=== PATIENT | male | born 1970 | race Hispanic/Latino ===

== ENCOUNTER 2023-11-29 18:49 | Inpatient (IN) | payer SELFPAY ==
[2023-11-29 19:24] LABS: #Basophils 0.04 10x3/uL (0.0-0.2); #Eosinophils Less than 0.03 10x3/uL (0.0-0.7); %Basophils 0.3 % (0.0-1.0); %Lymphocytes 14.7 % (21.0-51.0); %Monocytes 14.3 % (0.0-10.0); %Neutrophils 70.3 % (42.0-75.0); Hematocrit 38.3 % (42.0-52.0); Mean Corpuscular HGB CONC 36.6 g/dL (32.0-36.0); Mean Corpuscular Hemoglobin 30.2 pg (27.0-31.0); Mean Corpuscular Volume 82.7 fL (78.0-98.0); Mean Platelet Volume 10.6 fL (7.4-10.4); Platelet Count 152 10x3/uL (130-400); RBC Distribution Width 11.9 % (11.5-14.5); Red Blood Cell (RBC) Count 4.63 mill/uL (4.70-6.10)
[2023-11-29 19:42] LABS: Lipase 84 U/L (8-78); Magnesium 1.8 mg/dL (1.6-2.6)
[2023-11-29 19:43] LABS: Acetaminophen Less than 10 mcg/mL (Less than 10); Alcohol Less than 10.0 mg/dL (Less than 10); Salicylate Less than 8.0 mg/dL (Less than 8.0)
[2023-11-29 19:45] LABS: ALT (SGPT) 22 U/L (8-55); AST (SGOT) 27 U/L (5-34); Albumin 3.5 g/dL (3.5-5.0); Alkaline Phosphatase 66 U/L (40-110); Anion Gap 11 mmol/L (10-20); BUN (Urea Nitrogen) 13 mg/dL (8.4-25.7); Bilirubin, Total 1.2 mg/dL (0.2-1.2); Calc. Creatinine Clearance 0 mL/min (70-130); Calcium 8.2 mg/dL (7.8-10.44); Carbon Dioxide 23 mmol/L (22-29); Chloride 96 mmol/L (98-107); Estimated GFR 103; Globulin 3.7 g/dL (2.4-3.5); Glucose 293 mg/dL (70-105); Protein, Total 7.2 g/dL (6.0-8.3); Sodium 127 mmol/L (136-145)
[2023-11-29 19:46] LABS: INR-International Normal Ratio 1.2; Prothrombin Time 15.2 sec (12.0-14.7); Troponin I 0.039 ng/mL (< 0.028)
[2023-11-29 20:08] LABS: Amphetamine Not Detected (NotDetected); Barbiturates Screen Not Detected (NotDetected); Benzodiazepine Screen Not Detected (NotDetected); Cocaine Metabolite Screen Not Detected (NotDetected); Methadone Not Detected (NotDetected); Methamphetamine Not Detected (NotDetected); Opiate Screen Not Detected (NotDetected); Oxycodone Screen Not Detected (NotDetected); Phencyclidine (PCP) Not Detected (NotDetected); THC/Cannabinoid Screen Not Detected (NotDetected); Tricyclic Screen Not Detected (NotDetected)
[2023-11-29 20:10] LABS: Actual Bicarbonate (HCO3v) 23.8 mEq/L (22-28); Analyzer IN Cardio ER; Base Excess 0.1 mEq/L (-2.0 to +3.0); Calcium, Ionized (venous) 1.04 mmol/L (1.16-1.32); Chloride (VBG) 94 mmol/L (98-106); Hematocrit-VBG 43 % (42.0-52.0); Hemoglobin (Hb) 14.6 g/dL (13.1-17.2); Potassium (VBG) 3.08 mmol/L (3.70-5.30); Sodium 130 mmol/L (133-146); pH (venous) 7.439 (7.32-7.43)
[2023-11-29 20:24] LABS: Bilirubin Negative (Negative); Blood, Urine 3+ (Negative); CAUTI Indications for Culture Alt mental st,lethar; Clarity Clear (Clear); Glucose, Urine (Dipstick) Greater than 1000 mg/dL (Negative); Ketone, Urine Negative (Negative); Leukocyte Negative Leu/uL (Negative); Nitrite Negative (Negative); Protein, Urine (Dipstick) 300 mg/dL (Neg-Trace); RBC/HPF 0-3 HPF (0-3); Specific Gravity, Urine 1.024 (1.002-1.036); Urobilinogen Normal mg/dL (Less than 2)
[2023-11-29] MEDS ORDERED: Electrolyte Replacement Protocol 1 EACH FS SCH (20:45)
[2023-11-29] MEDS ORDERED: Lorazepam 1 MG TAB PO PRN (20:45)
[2023-11-29] MEDS ORDERED: Ondansetron PF 4 MG/2 ML Vial IVP PRN (20:45)
[2023-11-29] MEDS ORDERED: Lorazepam 2 MG/ML VIAL IM PRN (20:45)
[2023-11-29] MEDS ORDERED: Lorazepam 1 MG TAB PO SCH (20:45)
[2023-11-29] MEDS ORDERED: Acetaminophen 650 MG Suppository PR PRN (20:45)
[2023-11-29] MEDS ORDERED: Ondansetron ODT 4 MG TAB PO PRN (20:45)
[2023-11-29 21:05] LABS: Bacteria/HPF Rare-Few HPF (None Seen)
[2023-11-29 21:06] LABS: Squamous Epithelial 0-3 HPF (0-3); Urine Culture Reflex No No
[2023-11-29] MEDS ORDERED: Lorazepam 2 MG/ML VIAL ONE (21:12)
[2023-11-29] MEDS ORDERED: Thiamine HCl 200 MG/2 ML VIAL ONE (21:12)
[2023-11-29] MEDS ORDERED: Multivit, Therapeutic 1 TAB ONE (21:12)
[2023-11-29] MEDS ORDERED: Aspirin Chewable 81 MG TAB ONE (21:12)
[2023-11-29] MEDS ORDERED: Magnesium 2 GM/50 ML BAG (IN WATER) ONE (21:13)
[2023-11-29] MEDS ORDERED: Potassium Chloride 20 MEQ TAB ONE (21:13)
[2023-11-29] MEDS ORDERED: Folic Acid 1 MG TAB ONE (21:30)
[2023-11-29] MEDS ORDERED: Nitroglycerin 0.4 MG TAB (25 Tab Bottle) SL PRN (21:54)
[2023-11-29] MEDS ORDERED: Glucagon 1 MG/ML KIT IM PRN (22:00)
[2023-11-29] MEDS ORDERED: Insulin Lispro 100 UNIT/ML 10 ML VIAL SC PRN (22:00)
[2023-11-29] MEDS ORDERED: Dextrose 5% in Water 1,000 ML IV PRN (22:00)
[2023-11-29] MEDS ORDERED: Dextrose 50% Abboject 50 ML SYRINGE SLOW IVP PRN (22:00)
[2023-11-30 00:10] LABS: Hemoglobin A1c 9.4 % (4.0-6.0)
[2023-11-30] MEDS: Famotidine 20 MG TAB PO SCH (00:12)
[2023-11-30] MEDS: Thiamine HCl 200 MG/2 ML VIAL SLOW IVP SCH (00:12)
[2023-11-30] MEDS: Famotidine/PF 20 mg/2ml Vial SLOW IVP SCH (00:12)
[2023-11-30 00:19] LABS: Troponin I 0.039 ng/mL (< 0.028)
[2023-11-30 02:06] LABS: Troponin I 0.041 ng/mL (< 0.028)
[2023-11-30 03:04] VITALS: BMI 28.5
[2023-11-30 04:43] LABS: #Basophils 0.06 10x3/uL (0.0-0.2); #Eosinophils Less than 0.03 10x3/uL (0.0-0.7); %Basophils 0.4 % (0.0-1.0); %Lymphocytes 23.2 % (21.0-51.0); %Monocytes 13.9 % (0.0-10.0); %Neutrophils 62.2 % (42.0-75.0); Hemoglobin 13.6 g/dL (14.0-18.0); Mean Corpuscular HGB CONC 34.9 g/dL (32.0-36.0); Mean Corpuscular Hemoglobin 29.7 pg (27.0-31.0); Mean Corpuscular Volume 85.2 fL (78.0-98.0); Mean Platelet Volume 11.3 fL (7.4-10.4); Platelet Count 160 10x3/uL (130-400); RBC Distribution Width 11.9 % (11.5-14.5); Red Blood Cell (RBC) Count 4.58 mill/uL (4.70-6.10)
[2023-11-30 04:55] LABS: Anion Gap 13 mmol/L (10-20); BUN (Urea Nitrogen) 8 mg/dL (8.4-25.7); Calc. Creatinine Clearance 118 mL/min (70-130); Calcium 8.3 mg/dL (7.8-10.44); Carbon Dioxide 21 mmol/L (22-29); Cardiac Risk 6.3 (Less than 4.5); Chloride 103 mmol/L (98-107); Cholesterol 164 mg/dl (< 200 Desired); Estimated GFR 107; Glucose 198 mg/dL (70-105); HDL Cholesterol 26 mg/dL (>60 Neg Risk); LDL Cholesterol, Calculated 87 mg/dL; Potassium 3.2 mmol/L (3.5-5.1); Sodium 134 mmol/L (136-145); Triglycerides 257 mg/dL (Less than 150)
[2023-11-30] MEDS: Insulin Lispro 100 UNIT/ML 10 ML VIAL SC PRN (06:35)
[2023-11-30] MEDS: Aspirin 81 mg Enteric Coated Tablet PO SCH (08:26)
[2023-11-30] MEDS: Enoxaparin 40 MG (0.4 mL) SYRINGE SC SCH (08:26)
[2023-11-30] MEDS: Multivit, Therapeutic 1 TAB PO SCH (08:26)
[2023-11-30] MEDS: Potassium Chloride 20 MEQ TAB PO SCH (08:27)
[2023-11-30] MEDS: Folic Acid 1 MG TAB PO SCH (08:27)
[2023-11-30] MEDS: Insulin Glargine 30 UNITS/0.3 ML VIAL SC SCH (08:27)
[2023-11-30 08:40] LABS: Troponin I 0.027 ng/mL (< 0.028)
[2023-11-30] MEDS ORDERED: Lorazepam 1 MG TAB PO PRN (20:45)
[2023-11-30] MEDS: Atorvastatin Calcium 40 MG TAB PO SCH (21:45)
[2023-12-01 04:29] LABS: #Basophils 0.08 10x3/uL (0.0-0.2); #Eosinophils Less than 0.03 10x3/uL (0.0-0.7); %Basophils 0.7 % (0.0-1.0); %Lymphocytes 28.9 % (21.0-51.0); Hematocrit 38.3 % (42.0-52.0); Hemoglobin 13.5 g/dL (14.0-18.0); Mean Corpuscular HGB CONC 35.2 g/dL (32.0-36.0); Mean Corpuscular Hemoglobin 29.2 pg (27.0-31.0); Mean Corpuscular Volume 82.9 fL (78.0-98.0); Mean Platelet Volume 11.6 fL (7.4-10.4); Platelet Count 170 10x3/uL (130-400); Red Blood Cell (RBC) Count 4.62 mill/uL (4.70-6.10)
[2023-12-01 04:59] LABS: Anion Gap 13 mmol/L (10-20); BUN (Urea Nitrogen) 10 mg/dL (8.4-25.7); Calc. Creatinine Clearance 128 mL/min (70-130); Calcium 8.6 mg/dL (7.8-10.44); Carbon Dioxide 24 mmol/L (22-29); Chloride 97 mmol/L (98-107); Estimated GFR 110; Glucose 125 mg/dL (70-105); Magnesium 2.3 mg/dL (1.6-2.6); Potassium 3.1 mmol/L (3.5-5.1); Sodium 131 mmol/L (136-145)
[2023-12-01] MEDS ORDERED: Potassium Chloride 20 MEQ TAB PO SCH (08:00)
[2023-12-01] MEDS: Potassium Chloride 20 MEQ TAB PO SCH (09:04)
[2023-12-01] MEDS ORDERED: Lorazepam 1 MG TAB PO PRN (20:45)
[2023-12-01] MEDS ORDERED: Lorazepam 0.5 MG TAB PO SCH (20:45)
[2023-12-02 04:23] LABS: #Basophils 0.04 10x3/uL (0.0-0.2); %Basophils 0.5 % (0.0-1.0); %Eosinophils 0.6 % (0.0-10.0); %Lymphocytes 26.6 % (21.0-51.0); %Monocytes 11.5 % (0.0-10.0); %Neutrophils 60.5 % (42.0-75.0); Hematocrit 40.5 % (42.0-52.0); Hemoglobin 13.9 g/dL (14.0-18.0); Mean Corpuscular HGB CONC 34.3 g/dL (32.0-36.0); Mean Corpuscular Hemoglobin 29.2 pg (27.0-31.0); Mean Corpuscular Volume 85.1 fL (78.0-98.0); Mean Platelet Volume 12.2 fL (7.4-10.4); Platelet Count 187 10x3/uL (130-400); RBC Distribution Width 11.9 % (11.5-14.5); Red Blood Cell (RBC) Count 4.76 mill/uL (4.70-6.10)
[2023-12-02 04:42] LABS: Anion Gap 13 mmol/L (10-20); BUN (Urea Nitrogen) 11 mg/dL (8.4-25.7); Calc. Creatinine Clearance 143 mL/min (70-130); Calcium 8.6 mg/dL (7.8-10.44); Carbon Dioxide 24 mmol/L (22-29); Chloride 98 mmol/L (98-107); Estimated GFR 113; Glucose 136 mg/dL (70-105); Magnesium 2.3 mg/dL (1.6-2.6); Sodium 132 mmol/L (136-145)
[2023-12-02] MEDS: Potassium Chloride 20 MEQ TAB PO SCH ×2 (08:12→13:34)
[2023-12-02] MEDS: Losartan 25 MG TAB PO SCH (08:13)
[2023-12-02 11:51] VITALS: BMI 28.5
[2023-12-02] MEDS ORDERED: Lorazepam 0.5 MG TAB PO PRN (20:45)
[2023-12-02] MEDS: Acetaminophen 325 MG TAB PO PRN (21:16)
[2023-12-02] MEDS: Thiamine 100 MG TAB PO SCH (21:16)
[2023-12-03 03:30] LABS: #Basophils 0.05 10x3/uL (0.0-0.2); %Basophils 0.5 % (0.0-1.0); %Eosinophils 1.5 % (0.0-10.0); %Lymphocytes 24.8 % (21.0-51.0); %Monocytes 11.4 % (0.0-10.0); %Neutrophils 60.9 % (42.0-75.0); Hematocrit 38.4 % (42.0-52.0); Hemoglobin 13.3 g/dL (14.0-18.0); Mean Corpuscular HGB CONC 34.6 g/dL (32.0-36.0); Mean Corpuscular Hemoglobin 29.2 pg (27.0-31.0); Mean Corpuscular Volume 84.2 fL (78.0-98.0); Mean Platelet Volume 11.9 fL (7.4-10.4); Platelet Count 257 10x3/uL (130-400); Red Blood Cell (RBC) Count 4.56 mill/uL (4.70-6.10)
[2023-12-03 03:59] LABS: Anion Gap 12 mmol/L (10-20); BUN (Urea Nitrogen) 11 mg/dL (8.4-25.7); Calc. Creatinine Clearance 132 mL/min (70-130); Calcium 9.1 mg/dL (7.8-10.44); Carbon Dioxide 23 mmol/L (22-29); Chloride 101 mmol/L (98-107); Estimated GFR 110; Glucose 174 mg/dL (70-105); Magnesium 2.4 mg/dL (1.6-2.6); Potassium 3.2 mmol/L (3.5-5.1); Sodium 133 mmol/L (136-145)
[2023-12-03] MEDS ORDERED: Potassium Chloride 20 MEQ TAB PO SCH (08:00)
[2023-12-03] MEDS ORDERED: PROPOFOL 200 MG/20 ML VIAL ONE (08:07)
[2023-12-03] MEDS: Potassium Chloride 20 MEQ TAB PO SCH (10:48)
[2023-12-04 04:15] LABS: #Basophils 0.05 10x3/uL (0.0-0.2); %Basophils 0.5 % (0.0-1.0); %Lymphocytes 21.3 % (21.0-51.0); %Monocytes 13.6 % (0.0-10.0); Hematocrit 40.1 % (42.0-52.0); Hemoglobin 13.2 g/dL (14.0-18.0); Mean Corpuscular HGB CONC 32.9 g/dL (32.0-36.0); Mean Corpuscular Hemoglobin 29.1 pg (27.0-31.0); Mean Corpuscular Volume 88.5 fL (78.0-98.0); Platelet Count 283 10x3/uL (130-400); RBC Distribution Width 12.2 % (11.5-14.5); Red Blood Cell (RBC) Count 4.53 mill/uL (4.70-6.10)
[2023-12-04 04:40] LABS: Anion Gap 16 mmol/L (10-20); BUN (Urea Nitrogen) 15 mg/dL (8.4-25.7); Calc. Creatinine Clearance 93 mL/min (70-130); Calcium 8.9 mg/dL (7.8-10.44); Carbon Dioxide 20 mmol/L (22-29); Chloride 105 mmol/L (98-107); Estimated GFR 93; Glucose 138 mg/dL (70-105); Potassium 3.5 mmol/L (3.5-5.1); Sodium 137 mmol/L (136-145)
[2023-12-04] MEDS: Potassium Chloride 20 MEQ TAB PO SCH (09:25)
[2023-12-04] MEDS: FLU (Fluarix Triv) TS24-25(6MOS UP)/PF 45 MCG/0.5 ML Syringe IM ONE (09:46)
[2023-12-04] MEDS: metFORMIN 500 MG TAB PO SCH (18:06)
[2023-12-05 03:56] LABS: #Basophils 0.06 10x3/uL (0.0-0.2); %Basophils 0.6 % (0.0-1.0); %Eosinophils 2.7 % (0.0-10.0); %Lymphocytes 27.2 % (21.0-51.0); %Monocytes 12.5 % (0.0-10.0); %Neutrophils 56.1 % (42.0-75.0); Hematocrit 39.1 % (42.0-52.0); Hemoglobin 13.2 g/dL (14.0-18.0); Mean Corpuscular HGB CONC 33.8 g/dL (32.0-36.0); Mean Corpuscular Hemoglobin 29.3 pg (27.0-31.0); Mean Corpuscular Volume 86.9 fL (78.0-98.0); Mean Platelet Volume 11.8 fL (7.4-10.4); Platelet Count 319 10x3/uL (130-400); RBC Distribution Width 12.4 % (11.5-14.5)
[2023-12-05 04:34] LABS: Anion Gap 14 mmol/L (10-20); BUN (Urea Nitrogen) 19 mg/dL (8.4-25.7); Calc. Creatinine Clearance 73 mL/min (70-130); Carbon Dioxide 21 mmol/L (22-29); Chloride 106 mmol/L (98-107); Estimated GFR 70; Glucose 119 mg/dL (70-105); Potassium 3.9 mmol/L (3.5-5.1); Sodium 137 mmol/L (136-145)
[2023-12-05 11:43] VITALS: BP 134/80; TEMP 98
== END 2023-12-05 14:57 | disposition home or self-care (01) | DRG 64 ==
LOC: ERS 18:49 → 2SE 20:54
PROVIDERS: ADMIT Student in an Organized Health Care Education/Training Program; ATTEND Internal Medicine
PROC: 4A00X4Z Measurement of Central Nervous Electrical Activity, External Approach (ICD-10-PCS; principal; 2023-11-30)
DX: I63.9 Cerebral infarction, unspecified (principal); G93.41 Metabolic encephalopathy; E87.1 Hypo-osmolality and hyponatremia; I5A Non-ischemic myocardial injury (non-traumatic); R47.01 Aphasia; E11.65 Type 2 diabetes mellitus with hyperglycemia; E87.6 Hypokalemia; I10 Essential (primary) hypertension; E78.5 Hyperlipidemia, unspecified; Z51.5 Encounter for palliative care; Z88.8 Allergy status to other drugs, medicaments and biological substances; R13.10 Dysphagia, unspecified
CPT/HCPCS: 36415; 36416; 70450; 70551; 71045; 76376; 80048; 80053; 80061; 80306; 80307; 81001; 82010; 82140; 82805; 83036; 83605; 83690; 83735; 83880; 84145; 84443; 84484; 85025; 85610; 85730; 87040; 87428; 93005; 93306; 93880; 94760; 95813; 96374; 96375; J1650; J1815; J2060; J2704; J3411; J3475